=== PATIENT | male | born 1935 | race Caucasian/White ===

== ENCOUNTER 2017-04-02 12:05 | Day surgery (SDC) | payer OTHER ==
[~2017-04-02] VITALS: Ht 172.7 cm; Wt 77.1 kg
[~2017-04-02 12:05] MED LIST: ASPIR-LOW81 MG PO; ATORVASTATIN CA40 MG PO; FOSINOPRIL SODI20 MG PO; METOPROLOL TAR100 MG PO; OMEGA-3 KRILL1 EAC1 PO; PLAVIX75 MG PO; SOTALOL80 MG PO
== END 2017-04-02 15:48 | disposition home or self-care (01) ==
LOC: CATH 12:05
PROC: 0JPT0PZ Removal of Cardiac Rhythm Related Device from Trunk Subcutaneous Tissue and Fascia, Open Approach (ICD-10-PCS; principal; 2017-04-02)
PROC: 0JH608Z Insertion of Defibrillator Generator into Chest Subcutaneous Tissue and Fascia, Open Approach (ICD-10-PCS; principal; 2017-04-02)
DX: Z45.02 Encounter for adjustment and management of automatic implantable cardiac defibrillator (principal); I11.0 Hypertensive heart disease with heart failure; I50.9 Heart failure, unspecified; I47.2 Ventricular tachycardia; I25.10 Atherosclerotic heart disease of native coronary artery without angina pectoris; E78.4 Other hyperlipidemia; Z95.1 Presence of aortocoronary bypass graft; I25.2 Old myocardial infarction; Z79.82 Long term (current) use of aspirin; Z79.02 Long term (current) use of antithrombotics/antiplatelets; Z87.891 Personal history of nicotine dependence
CPT/HCPCS: C1721; J0690; J1200; J2250; J3010; S0020